=== PATIENT | female | born 1980 ===

== ENCOUNTER 2021-05-08 10:38 | Outpatient (CLI) | payer OTHER | END 2021-05-08 23:59 | LOC: LAB.N 10:38 | PROVIDERS: ATTEND Family Medicine | DX: R31.9 Hematuria, unspecified (principal) | CPT/HCPCS: 87086 ==

== ENCOUNTER 2021-05-08 12:35 | Outpatient (CLI) | payer OTHER ==
--- NOTE | 2021-05-08 17:22 | XRAY Report ---
PROCEDURE: Abdomen 1 View X-Ray INDICATIONS: HEMATURIA TECHNIQUE: 1 view of the abdomen were acquired. COMPARISON: None FINDINGS: Surgical changes and devices: None. Bowel: No pneumoperitoneum. The bowel gas pattern is normal. There is a moderate amount of stool s een within the colon. Soft tissues: No masses; visualized solid organ contours appear normal in size. No suspicious abdom inal calcifications. Bones: No suspicious bony abnormalities. Mild dextroconvex scoliotic curvature is seen. IMPRESSION: No stones are seen. In this patient with a presenting history of hematuria, please consider a follow-up dedicated hematur ia protocol CT for further evaluation. There is a moderate amount of stool seen within the colon. Please correlate with clinical constipatio n. Reviewed by: Venancio Parker MD on 05/08/2021 4:21 PM AKDT Approved by: Venancio Parker MD on 05/08/2021 4:21 PM BILLIE Station ID: [id number]
== END 2021-05-08 12:36 ==
LOC: DI.N 12:35
PROVIDERS: ATTEND Family Medicine
DX: R31.9 Hematuria, unspecified (principal)